=== PATIENT | male | born 1995 | race Caucasian/White ===

== ENCOUNTER → 2017-05-31 | Outpatient (CLI) | payer BC ==
--- NOTE | 2017-05-31 14:52 | RADIOLOGY IMAGING REPORT ---
FACILITY: [facility] - [place] PATIENT NAME: Kyler Martinez : 1995 MR: [id number] V: [id number] EXAM DATE: ORDERING PHYSICIAN: SAWYER DANIELS TECHNOLOGIST: Location: [facility] - [place] Patient: Kyler Martinez : 1995 Visit/Account:[id number] Date of Sevice: 05/31/2017 EXAMINATION: Scrotal ultrasound with duplex Doppler evaluation HISTORY: Five days of left scrotal tenderness. COMPARISON: None. FINDINGS: The right testicle measures 4.3 x 2.7 x 1.8 cm. The left testicle measures 4.3 x 3 x 2.1 cm. Testic ular echogenicity is normal. No testicular mass. Normal blood flow within both testicles. Normal e pididymides. There is a mildly distended apparent vein within the posterior aspect of the left scrotum posterior t o the left testicle with internal echogenic material. No apparent blood flow within this portion of this apparent vessel. Comparison views of the right testicle show a similarly positioned vein posterior to the right testic le which appears anechoic and exhibits normal blood flow. IMPRESSION: 1. Echogenic debris fills an apparent vein within the left scrotum posterior to the left testicle in keeping with age-indeterminate thrombus potentially within a varicocele or within a non-varicocele s crotal vein. Otherwise normal left testicle with normal left testicular blood flow. Recommend follow-up ultrasound in one to two weeks to evaluate for stability and exclude increase in size of the apparent thrombus. 2. Otherwise normal testicular ultrasound. Report Dictated By: Kris Dumont MD at 05/31/2017 2:39 PM Report E-Signed By: Kris Dumont MD at 05/31/2017 2:48 PM WSN:[email or web address]
== END ==
LOC: US 13:27
PROVIDERS: ATTEND Physician Assistant
DX: N50.89 Other specified disorders of the male genital organs (principal)
CPT/HCPCS: 76870

== ENCOUNTER → 2017-07-03 | Outpatient (CLI) | payer BC ==
--- NOTE | 2017-07-03 09:44 | RADIOLOGY IMAGING REPORT ---
FACILITY: [facility] PATIENT NAME: Kyler Martinez : 1995 MR: [id number] V: [id number] EXAM DATE: ORDERING PHYSICIAN: BONNIE COLEY TECHNOLOGIST: Location: [facility] [place] Patient: Kyler Martinez : 1995 Visit/Account:[id number] Date of Sevice: 07/03/2017 TESTICULAR HISTORY: Thrombus left scrotal vein COMPARISON: May 31, 2017 FINDINGS: Testes: Right testicle measures 4.6 x 1.7 x 2.8 cm. Left testicle measures 4 x 2 x 2.9 cm Symmetric and unremarkable blood flow documented by color and Duplex Doppler ultrasound. Epididymides: The head epididymis on the right measures 0.8 cm on the left 0.9 cm Blood flow is unre markable in each epididymis by color Doppler ultrasound. Hydrocele: None. Varicocele: The previously noted partially thrombosed vein in the posterior aspect of the left scrotu m is no longer seen IMPRESSION: Previous noted partially thrombosed vein posterior aspect of the left scrotum is no longer seen. Report Dictated By: Lori Man MD at 07/03/2017 9:36 AM Report E-Signed By: Lori Man MD at 07/03/2017 9:40 AM WSN:[email or web address]
== END ==
LOC: US 00:47
PROVIDERS: ATTEND Urology
DX: N50.812 Left testicular pain (principal)
CPT/HCPCS: 76870